=== PATIENT | male | born 2000 | race Caucasian/White ===

== ENCOUNTER 2019-03-18 12:42 | Observation (INO) | payer OTHER ==
[2019-03-18] MEDS ORDERED: fentaNYL (PF) 50 MCG/ML 2 ML AMP IVP STA (12:44)
--- NOTE | 2019-03-18 12:56 | ED ---
General Adult HPI - General Stated complaint: Trauma Time Seen by Provider: 03/18/19 12:43 Source: patient, EMS, RN notes reviewed, old records reviewed Mode of arrival: EMS Limitations: no limitations - History of Present Illness Initial comments: 18 -year-old male presenting status post fall. Patient is supposed member in the [employer], he fell into the storage compartment of a [employer] ship. Fall was approximately 10 feet. Patient complains of left shoulder pain, left thigh pain. He was cleared by EMS on backboard, c-collar in place, cervical precautions. He has no head or neck pain. No loss consciousness. Denies abdominal pain. He does have some chest pain with deep inspiration. He has no chronic medical conditions. No medications. - Related Data Home Medications Medication Instructions Recorded Confirmed No Known Home Medications 03/18/19 03/18/19 Allergies Allergy/AdvReac Type Severity Reaction Status Date / Time No Known Allergies Allergy Verified 03/18/19 14:01 Review of Systems ROS Statement: Those systems with pertinent positive or pertinent negative responses have been documented in the HPI. ROS Other: All systems not noted in ROS Statement are negative. Past Medical History Past Medical History: No Reported History History of Any Multi-Drug Resistant Organisms: None Reported Past Surgical History: No Surgical Hx Reported Smoking Status: Never smoker Past Alcohol Use History: None Reported Past Drug Use History: None Reported General Exam Limitations: no limitations General appearance: alert, in no apparent distress Head exam: Present: atraumatic, normocephalic Eye exam: Present: normal appearance, PERRL ENT exam: Present: normal exam Neck exam: Present: normal inspection, other (Cervical collar in place). Absent: tenderness Respiratory exam: Present: normal lung sounds bilaterally, chest wall tenderness (Left-sided chest wall tenderness). Absent: respiratory distress, wheezes Cardiovascular Exam: Present: regular rate, normal rhythm GI/Abdominal exam: Present: soft. Absent: distended, tenderness, guarding, rebound Extremities exam: Present: other (Left distal femur tenderness palpation, swelling, no shortening of the left lower extremity, distal pulses are intact. Pelvis is stable.) Back exam: Present: normal inspection. Absent: tenderness, paraspinal tenderness, vertebral tenderness Neurological exam: Present: alert, oriented X3 Psychiatric exam: Present: normal affect, normal mood Skin exam: Present: warm, dry, intact. Absent: cyanosis, diaphoretic Course Vital Signs 03/18/19 03/18/19 12:43 13:18 Temperature 97.0 F L Pulse Rate 89 76 Respiratory 20 20 Rate Blood Pressure 142/82 141/76 O2 Sat by Pulse 98 98 Oximetry Medical Decision Making - Medical Decision Making 18-year-old male, otherwise healthy presenting status post fall with chief complaint left shoulder pain, left thigh pain. Patient fell approximately 10 feet. He required EMS extrication. No head or neck trauma reported. He was transported with spinal precautions, cervical collar in place. He was evaluated immediately upon arrival. He had stable vital signs, his abdomen was soft nontender. Complains predominately of left shoulder pain, posterior rib pain and left thigh pain. He receives CT of the head and cervical spine without contrast, and CT with contrast of chest abdomen pelvis as well as plain films of the chest, pelvis, left knee, and left femur. Injuries include left posterior nondisplaced rib fractures 7 through 10 with adjacent pulmonary contusion. He has transverse process fracture 8-10. No other traumatic injuries noted on imaging. Case is discussed with Dr. Ramirez, will admit with orthopedics on c onsult. Case is discussed with More hood for Dr. Cole, will evaluate this patient in consultation regarding transverse process fracture. Patient kept on supplemental oxygen and given incentive spirometry. Admitted for pain control and further evaluation treatment. - Lab Data Result diagrams: 03/18/19 12:21 03/18/19 12:21 Lab Results 03/18/19 03/18/19 03/18/19 Range/Units 12:21 12:21 12:21 WBC 7.8 (4.0-11.0) k/uL RBC 5.26 (4.30-5.90) m/uL Hgb 14.5 (13.0-17.5) gm/dL Hct 43.6 (39.0-53.0) % MCV 82.9 (80.0-100.0) fL MCH 27.7 (25.0-35.0) pg MCHC 33.4 (31.0-37.0) g/dL RDW 14.1 (11.5-15.5) % Plt Count 240 (150-450) k/uL Neutrophils % 71 % Lymphocytes % 22 % Monocytes % 4 % Eosinophils % 2 % Basophils % 0 % Neutrophils # 5.5 (1.3-7.7) k/uL Lymphocytes # 1.7 (1.0-4.8) k/uL Monocytes # 0.3 (0-1.0) k/uL Eosinophils # 0.1 (0-0.7) k/uL Basophils # 0.0 (0-0.2) k/uL PT 10.2 (9.0-12.0) sec INR 0.9 (<1.2) APTT 22.1 (22.0-30.0) sec Sodium 140 (137-145) mmol/L Potassium 4.4 (3.5-5.1) mmol/L Chloride 103 (98-107) mmol/L Carbon Dioxide 26 (22-30) mmol/L Anion Gap 11 mmol/L BUN 24 H (9-20) mg/dL Creatinine 1.06 (0.66-1.25) mg/dL Est GFR (CKD-EPI)AfAm >90 (>60 ml/min/1.73 sqM) Est GFR (CKD-EPI)NonAf >90 (>60 ml/min/1.73 sqM) Glucose 113 H (74-99) mg/dL Calcium 9.7 (8.4-10.2) mg/dL Total Bilirubin 0.6 (0.2-1.3) mg/dL AST 49 (17-59) U/L ALT 37 (21-72) U/L Alkaline Phosphatase 79 (38-126) U/L Troponin I (0.000-0.034) ng/mL Total Protein 7.4 (6.3-8.2) g/dL Albumin 4.6 (3.5-5.0) g/dL Blood Type Blood Type Recheck Antibody Screen Spec Expiration Date 03/18/19 03/18/19 Range/Units 12:21 12:21 WBC (4.0-11.0) k/uL RBC (4.30-5.90) m/uL Hgb (13.0-17.5) gm/dL Hct (39.0-53.0) % MCV (80.0-100.0) fL MCH (25.0-35.0) pg MCHC (31.0-37.0) g/dL RDW (11.5-15.5) % Plt Count (150-450) k/uL Neutrophils % % Lymphocytes % % Monocytes % % Eosinophils % % Basophils % % Neutrophils # (1.3-7.7) k/uL Lymphocytes # (1.0-4.8) k/uL Monocytes # (0-1.0) k/uL Eosinophils # (0-0.7) k/uL Basophils # (0-0.2) k/uL PT (9.0-12.0) sec INR (<1.2) APTT (22.0-30.0) sec Sodium (137-145) mmol/L Potassium (3.5-5.1) mmol/L Chloride (98-107) mmol/L Carbon Dioxide (22-30) mmol/L Anion Gap mmol/L BUN (9-20) mg/dL Creatinine (0.66-1.25) mg/dL Est GFR (CKD-EPI)AfAm (>60 ml/min/1.73 sqM) Est GFR (CKD-EPI)NonAf (>60 ml/min/1.73 sqM) Glucose (74-99) mg/dL Calcium (8.4-10.2) mg/dL Total Bilirubin (0.2-1.3) mg/dL AST (17-59) U/L ALT (21-72) U/L Alkaline Phosphatase (38-126) U/L Troponin I <0.012 (0.000-0.034) ng/mL Total Protein (6.3-8.2) g/dL Albumin (3.5-5.0) g/dL Blood Type O Positive Blood Type Recheck CABO Indicated Antibody Screen NEGATIVE Spec Expiration Date 03/21/2019 - 2320 Disposition Clinical Impression: Fall, Ribs, multiple fractures, Multiple transverse process fractures Disposition: ADMITTED IP TO THIS [facility] Condition: Stable Is patient prescribed a controlled substance at d/c from ED?: No Referrals: None,Stated [Primary Care Provider] - 1-2 days Decision to Admit Reason: Admit from EC Decision Date: 03/18/19 Decision Time: 15:24
[2019-03-18 13:06] LABS: Basophils % (A) 0 %; Eosinophils # (A) 0.1 k/uL (0-0.7); Eosinophils % (A) 2 %; HCT 43.6 % (39.0-53.0); HGB 14.5 gm/dL (13.0-17.5); Lymphocytes # (A) 1.7 k/uL (1.0-4.8); Lymphocytes % (A) 22 %; MCH 27.7 pg (25.0-35.0); MCHC 33.4 g/dL (31.0-37.0); MCV 82.9 fL (80.0-100.0); Mean Platelet Volume 7.7; Monocytes # (A) 0.3 k/uL (0-1.0); Monocytes % (A) 4 %; Neutrophils # (A) 5.5 k/uL (1.3-7.7); Neutrophils % (A) 71 %; Platelet Count 240 k/uL (150-450); RBC 5.26 m/uL (4.30-5.90); RDW 14.1 % (11.5-15.5); WBC 7.8 k/uL (4.0-11.0)
[2019-03-18 13:11] LABS: ALT 37 U/L (21-72); AST 49 U/L (17-59); African American GFR (CKD) >90 (>60 ml/min/1.73 sqM); Albumin 4.6 g/dL (3.5-5.0); Alkaline Phosphatase 79 U/L (38-126); Anion Gap 11 mmol/L; Blood Urea Nitrogen 24 mg/dL (9-20); Calcium 9.7 mg/dL (8.4-10.2); Carbon Dioxide 26 mmol/L (22-30); Chloride 103 mmol/L (98-107); Glucose 113 mg/dL (74-99); Potassium 4.4 mmol/L (3.5-5.1); Sodium 140 mmol/L (137-145); Total Bilirubin 0.6 mg/dL (0.2-1.3); Total Protein 7.4 g/dL (6.3-8.2)
--- NOTE | 2019-03-18 13:11 | XR ---
AP pelvis HISTORY: Trauma and pain Single frontal view of the pelvis Patient is rotated. There are overlying artifacts. Bone mineralization, joint spaces and alignment ar e maintained IMPRESSION: No fracture or dislocation.
--- NOTE | 2019-03-18 13:13 | XR ---
EXAMINATION TYPE: XR chest 1V portable DATE OF EXAM: 03/18/2019 COMPARISON: NONE HISTORY: Fall with subsequent chest pain TECHNIQUE: Single frontal view of the chest is obtained. FINDINGS: There is no focal air space opacity, pleural effusion, or pneumothorax seen. The cardiac silhouette size is mildly enlarged. The osseous structures are intact. IMPRESSION: No acute process.
[2019-03-18 13:15] LABS: INR 0.9 (<1.2); Partial Thromboplastin Time 22.1 sec (22.0-30.0); Prothrombin Time 10.2 sec (9.0-12.0)
--- NOTE | 2019-03-18 13:48 | CT ---
EXAMINATION TYPE: CT brain alex wo con DATE OF EXAM: 03/18/2019 COMPARISON: None HISTORY: 18-year-old male with pain after Trauma. 8-[address] DLP: 1283.80 mGycm Automated exposure control for dose reduction was used. Technique: Examination of the head was done in axial plane without intravenous contrast. Coronal and sagittal reconstructions performed. CT of the cervical spine was obtained in axial plane without intravenous injection of contrast mater ial. Coronal and sagittal reformatted images were obtained from the axial views for evaluation of f ractures, spinal alignment and canal. FINDINGS: Head: There is no evidence of acute intracranial hemorrhage, acute ischemic changes, mass, mass-effect, or extra-axial fluid collection. There is no effacement of cerebral sulci or basal subarachnoid cister ns. There is no hydrocephalus. There is no midline shift. Winston-white matter distinction is preserv ed. Paranasal sinuses and mastoid air cells well pneumatized. Orbits and globes are intact. No calvarial fracture. Cervical spine: The alignment of the cervical spine is normal on coronal and reformatted images. There is no cranial vertebral abnormality. Fracture of the cervical spine is not seen. There is no central spinal canal s tenosis. Sagittal and coronal reformatted images confirm above findings. COMBINED IMPRESSION: 1. No acute intracranial abnormality seen. 2. No acute fracture or malalignment of cervical spine.
--- NOTE | 2019-03-18 14:00 | CT ---
EXAMINATION TYPE: CT ChestAbdPelvis w con DATE OF EXAM: 03/18/2019 COMPARISON: None HISTORY: 18-year-old male with pain after Trauma-8 to 10 foot Fall TECHNIQUE: Contiguous axial scanning of the test, abdomen, and pelvis performed with IV Contrast, pat ient injected with 100 ml mL of Isovue 300. Delayed images through the kidneys were obtained. Coronal /sagittal reconstructions performed. CT DLP: 1194.70 mGycm Automated exposure control for dose reduction was used. FINDINGS: Chest: Heart normal size without pericardial effusion. Mild residual thymic tissue is present in the anterio r mediastinum. Aorta normal caliber with conventional or 2 subtle branching anatomy. No evidence for aortic dissecti on. No thoracic lymphadenopathy. Mild bilateral gynecomastia. Scattered mild subpleural pulmonary groundglass is present in the left lung without pleural effusion. There is trace punctate foci of pleural air adjacent to the left posterior eighth rib. ABDOMEN: No focal liver lesion or biliary ductal dilatation. Portal venous system is patent. Prominent ingeste d debris within the stomach. Gallbladder, adrenal glands, kidneys, spleen, and pancreas appear within normal limits. No dilated small bowel, free fluid, or free air. No mesenteric or retroperitoneal lymphadenopathy seen. Mild to moderate stool burden. No pericolonic inflammatory change. Pelvis: Bladder is urine distended. No abnormal fluid collection in the pelvis or pelvic lymphadenopathy. Bones: No hip, pelvic, or sacral fracture is identified. Vertebral body heights are maintained. However, there are fractures of the left lateral seventh and left posterior eighth, ninth, and 10th r ibs without any displacement. Accompanying fractures involving the left T8, T9, and T10 transverse pr ocesses. IMPRESSION: 1. NONDISPLACED FRACTURES OF THE LEFT SEVENTH, EIGHTH, NINTH, AND 10TH RIBS WITH ASSOCIATED MILD PULM ONARY CONTUSIONS ON THE LEFT. 2. A COUPLE PUNCTATE FOCI OF PLEURAL AIR ADJACENT TO THE LEFT POSTERIOR EIGHTH RIB FRACTURE. NO SIZAB LE PNEUMOTHORAX AT THIS TIME. THE PATIENT CAN BE MONITORED. 3. THERE ARE ACCOMPANYING FRACTURES OF THE LEFT T8, T9, AND T10 TRANSVERSE PROCESSES.
[2019-03-18] MEDS ORDERED: KETOROLAC 30 MG/ML 1 ML VIAL IVP STA (14:35)
--- NOTE | 2019-03-18 14:42 | XR ---
EXAMINATION TYPE: XR shoulder complete LT DATE OF EXAM: 03/18/2019 COMPARISON: NONE HISTORY: 18-year-old male with pain after fall TECHNIQUE: 3 views FINDINGS: AC joint appears congruent and intact. No acute fracture, subluxation, or dislocation. IMPRESSION: No acute osseous abnormality seen.
--- NOTE | 2019-03-18 14:45 | XR ---
EXAMINATION TYPE: XR femur LT 2 views, XR knee complete LT 3 views DATE OF EXAM: 03/18/2019 COMPARISON: NONE HISTORY: 18-year-old male with pain after fall FINDINGS: Left femur: Stable bone island intertrochanteric region of the proximal left femur. IV contrast collecting within the bladder. No acute fracture is identified. Left knee: Anterior soft tissue swelling with underlying small knee joint effusion and some reticulations in the infrapatellar fat pad. No acute fracture, subluxation, or dislocation seen. IMPRESSION: 1. Left femur: No acute osseous abnormality seen. 2. Left knee: Anterior soft tissue swelling with underlying small joint effusion and some swelling in the infrapatellar fat pad. No acute osseous abnormality seen. MRI can assess for internal derangemen t if indicated.
[2019-03-18] MEDS ORDERED: ACETAMINOPHEN TAB 325 MG TAB PO PRN (15:19)
[2019-03-18] MEDS ORDERED: KETOROLAC 30 MG/ML 1 ML VIAL IVP PRN (15:19)
[2019-03-18] MEDS ORDERED: NALOXONE 0.4 MG/ML 1 ML VIAL IV PRN (15:19)
[2019-03-18] MEDS ORDERED: HYDROmorphone 0.5 MG/0.5 ML SYRINGE IVP PRN (15:19)
--- NOTE | 2019-03-18 20:28 | P.GSHP ---
History of Present Illness H&P Date: 03/18/19 Patient presents status post fall over 8-10 feet off the ship. He complains primarily of left back pain including rib pain. He has multiple rib fractures on the left side. Ironically, pain is well-controlled. Recommend orthopedic spine consultation for fracture transverse process. Continue with close observation. Anticipated discharge pending orthopedic assessment. Past Medical History Past Medical History: No Reported History History of Any Multi-Drug Resistant Organisms: None Reported Past Surgical History: No Surgical Hx Reported Past Anesthesia/Blood Transfusion Reactions: No Reported Reaction Past Psychological History: No Psychological Hx Reported Smoking Status: Never smoker Past Alcohol Use History: None Reported Past Drug Use History: None Reported Medications and Allergies Home Medications Medication Instructions Recorded Confirmed Type No Known Home Medications 03/18/19 03/18/19 History Allergies Allergy/AdvReac Type Severity Reaction Status Date / Time No Known Allergies Allergy Verified 03/18/19 14:01 Surgical - Exam Vital Signs Temp Pulse Resp BP Pulse Ox 97.0 F L 89 20 142/82 98 03/18/19 12:43 03/18/19 12:43 03/18/19 12:43 03/18/19 12:43 03/18/19 12:43 Results - Labs 03/18/19 12:21 03/18/19 12:21 Abnormal Lab Results - Last 24 Hours (Table) 03/18/19 Range/Units 12:21 BUN 24 H (9-20) mg/dL Glucose 113 H (74-99) mg/dL Diabetes panel 03/18/19 Range/Units 12:21 Sodium 140 (137-145) mmol/L Potassium 4.4 (3.5-5.1) mmol/L Chloride 103 (98-107) mmol/L Carbon Dioxide 26 (22-30) mmol/L BUN 24 H (9-20) mg/dL Creatinine 1.06 (0.66-1.25) mg/dL Glucose 113 H (74-99) mg/dL Calcium 9.7 (8.4-10.2) mg/dL AST 49 (17-59) U/L ALT 37 (21-72) U/L Alkaline Phosphatase 79 (38-126) U/L Total Protein 7.4 (6.3-8.2) g/dL Albumin 4.6 (3.5-5.0) g/dL Calcium panel 03/18/19 Range/Units 12:21 Calcium 9.7 (8.4-10.2) mg/dL Albumin 4.6 (3.5-5.0) g/dL Pituitary panel 03/18/19 Range/Units 12:21 Sodium 140 (137-145) mmol/L Potassium 4.4 (3.5-5.1) mmol/L Chloride 103 (98-107) mmol/L Carbon Dioxide 26 (22-30) mmol/L BUN 24 H (9-20) mg/dL Creatinine 1.06 (0.66-1.25) mg/dL Glucose 113 H (74-99) mg/dL Calcium 9.7 (8.4-10.2) mg/dL Adrenal panel 03/18/19 Range/Units 12:21 Sodium 140 (137-145) mmol/L Potassium 4.4 (3.5-5.1) mmol/L Chloride 103 (98-107) mmol/L Carbon Dioxide 26 (22-30) mmol/L BUN 24 H (9-20) mg/dL Creatinine 1.06 (0.66-1.25) mg/dL Glucose 113 H (74-99) mg/dL Calcium 9.7 (8.4-10.2) mg/dL Total Bilirubin 0.6 (0.2-1.3) mg/dL AST 49 (17-59) U/L ALT 37 (21-72) U/L Alkaline Phosphatase 79 (38-126) U/L Total Protein 7.4 (6.3-8.2) g/dL Albumin 4.6 (3.5-5.0) g/dL
[2019-03-18 20:44] LABS: Appearance,Urine Clear (Clear); Bilirubin,Urine Negative (Negative); Blood,Urine Negative (Negative); Color,Urine Yellow; Glucose,Urine (UA) Negative (Negative); Ketones,Urine Negative (Negative); Leukocyte Esterase,Urine Negative (Negative); Nitrite,Urine Negative (Negative); Protein,Urine Trace (Negative); Urobilinogen,Urine <2.0 mg/dL (<2.0)
[2019-03-18] MEDS: IBUPROFEN 400 MG TAB PO PRN (21:09)
[2019-03-18 21:23] LABS: Specific Gravity,Urine >1.050 (1.001-1.035)
[2019-03-19] MEDS: IBUPROFEN 400 MG TAB PO PRN ×2 (05:54→11:27)
[2019-03-19] MEDS ORDERED: HYDROcodone/APAP 5-325MG 1 EACH TAB PO PRN (11:49)
--- NOTE | 2019-03-19 11:55 | P.PN ---
<Lynsey Joyce A - Last Filed: 03/19/19 11:48> Subjective Progress Note Date: 03/19/19 CHIEF COMPLAINT: Status post fall HISTORY OF PRESENT ILLNESS: Patient seen and examined this morning at the bedside. Patient currently rates his pain 5 out of 10 and states it is mostly in his chest and left leg. Denies nausea or vomiting. Tolerating regular diet. Vital signs stable. PHYSICAL EXAM: VITAL SIGNS: Currently stable. GENERAL: Well-developed in no acute distress. HEENT: No sclera icterus. Extraocular movements grossly intact. Moist buccal mucosa. Head is atraumatic, normocephalic. Hears conversational speech. No nasal drainage. NECK: Supple without lymphadenopathy. CHEST: Non-labored respirations and equal bilateral excursions. Left chest wall tenderness. CARDIOVASCULAR: Regular rate with regular rhythm. Palpable 2+ radial pulses. ABDOMEN: Soft. Nondistended. Nontender. MUSCULOSKELETAL: No clubbing, cyanosis or edema. NEUROLOGIC: No focal or lateralizing signs. Cranial nerves II through XII grossly intact. PSYCH: Appropriate affect. Alert and oriented to person, place and time. SKIN: Well perfused. Good skin turgor. ASSESSMENT: 1. Trauma, s/p fall from 8 feet 2. Nondisplaced left rib fractures, 7-10 3. Pulmonary contusion 4. T8, T9, T10 transverse process fracture PLAN: 1. Continue regular diet as tolerated 2. Pain control 3. Incentive spirometry 4. Patient evaluated by orthopedics this morning. No surgical intervention recommended. Patient to follow up outpatient in 2 weeks. 5. Patient worked with PT this morning and after ambulating in the hallways he feels he is not ready for discharge home today. Anticipate discharge home tomorrow Nurse practitioner note has been reviewed by physician. Signing provider agrees with the documented findings, assessment, and plan of care. Objective - Vital Signs Vital signs: Vital Signs Temp 97.7 F 03/19/19 07:00 Pulse 69 03/19/19 07:00 Resp 17 03/19/19 07:16 BP 120/68 03/19/19 07:00 Pulse Ox 97 03/19/19 07:00 Intake & Output 03/18/19 03/19/19 03/19/19 18:59 06:59 18:59 Intake Total 250 236 Output Total 950 Balance -700 236 Weight 90.718 kg Intake: Oral 250 236 Output: Urine 950 Other: Voiding Method Urinal # Voids 1 1 - Labs CBC & Chem 7: 03/18/19 12:21 03/18/19 12:21 Labs: Abnormal Lab Results - Last 24 Hours (Table) 03/18/19 03/18/19 Range/Units 12:21 20:30 BUN 24 H (9-20) mg/dL Glucose 113 H (74-99) mg/dL Ur Specific [place] >1.050 H (1.001-1.035) Urine Protein Trace H (Negative) Assessment and Plan (1) Pulmonary contusion Current Visit: Yes Status: Acute Code(s): S27.329A - CONTUSION OF LUNG, UNSPECIFIED, INITIAL ENCOUNTER SNOMED Code(s): 129196875 (2) Fall Current Visit: Yes Status: Acute Code(s): W19.XXXA - UNSPECIFIED FALL, INITIAL ENCOUNTER SNOMED Code(s): 5686771 (3) Multiple transverse process fractures Current Visit: Yes Status: Acute Code(s): EQR8039 - SNOMED Code(s): 53507960 (4) Ribs, multiple fractures Current Visit: Yes Status: Acute Code(s): S22.49XA - MULTIPLE FRACTURES OF RIBS, UNSP SIDE, INIT FOR CLOS FX SNOMED Code(s): 7123866 <Evie Ramirez N - Last Filed: 03/19/19 16:53> Subjective Patient seen and evaluated. Pain has improved. He has difficulty with ambulation with physical therapy. Continue hospitalization for generalized debility status post fall from over 8 feet. Objective - Vital Signs Vital signs: Vital Signs Temp 98.2 F 03/19/19 15:00 Pulse 75 03/19/19 15:00 Resp 16 03/19/19 15:00 BP 123/74 03/19/19 15:00 Pulse Ox 98 03/19/19 15:00 Intake & Output 03/18/19 03/19/19 03/19/19 18:59 06:59 18:59 Intake Total 250 810 Output Total 950 Balance -700 810 Weight 90.718 kg Intake: Oral 250 810 Output: Urine 950 Other: Voiding Method Urinal # Voids 1 1 - Labs CBC & Chem 7: 03/18/19 12:21 03/18/19 12:21 Labs: Abnormal Lab Results - Last 24 Hours (Table) 03/18/19 Range/Units 20:30 Ur Specific [place] >1.050 H (1.001-1.035) Urine Protein Trace H (Negative)
--- NOTE | 2019-03-19 12:33 | P.CNOR ---
History of Present Illness - HPI Consult reason: fracture (Left transverse process fractures at T8, T9, and T10), other History of present illness: Patient is a pleasant 18-year-old male who is examined at bedside for further evaluation for known thoracic transverse process fractures status post fall. Patient is a member of the [employer] and fell into a storage container while o n the [employer] ship. He fell approximately 10 feet. He states he fell on his left side with most of his weight landing on his left thigh. Since that time he has been experiencing left thigh pain and significant mid to lower thoracic back pain most significant on the left. He presented to the emergency department for further evaluation. He was in admitted to trauma surgery. He denies any lower extremity radiculopathy or specific weakness bilaterally. He feels he has some difficulty with lifting his left lower extremity due to thigh pain. He is remain lying in bed since his admission. His thoracic back pain is exacerbated with movements of his spine. He denies loss of consciousness. He was found to have left-sided rib fractures as well. He is admitted to trauma surgery and is being treated for a pulmonary contusion. Past Medical History Past Medical History: No Reported History History of Any Multi-Drug Resistant Organisms: None Reported Past Surgical History: No Surgical Hx Reported Past Anesthesia/Blood Transfusion Reactions: No Reported Reaction Past Psychological History: No Psychological Hx Reported Smoking Status: Never smoker Past Alcohol Use History: None Reported Past Drug Use History: None Reported Medications and Allergies Home Medications Medication Instructions Recorded Confirmed Type No Known Home Medications 03/18/19 03/18/19 History Allergies Allergy/AdvReac Type Severity Reaction Status Date / Time No Known Allergies Allergy Verified 03/18/19 14:01 Physical Examination Physical exam: Patient is awake, alert, and oriented 3 Vital signs stable Good chest excursion with deep inspiration and expiration Examination of thoracic and lumbar spine reveals skin is intact with no issac sions, lacerations, or bruises; no erythema, purulence or signs of infection Pain with palpation along the mid and lower thoracic spine to the left over the paraspinals Dorsiflexion, plantarflexion, and extensor hallucis longus positive sustained bilaterally Lower extremity strength 5/5 bilaterally except for some difficulty with performing hip flexion on the left due to pain Mild pain with palpation over the left anterior thigh No evidence of erythema, bruising, laceration, or obvious signs of infection over the anterior left thigh Patellar reflex 2+ bilaterally No lower extremity hyperreflexia bilaterally Straight leg test negative bilateral lower extremities No signs or symptoms of DVT; no calf pain No pain with internal and external rotation of the hips bilaterally Neurovascularly intact Results Pertinent studies: CT of the chest, abdomen, and pelvis taken on 03/18/2019 reviewed for orthopedic purposes: Evidence of left lateral seventh rib fracture, posterior rib fractures at rib 8, 9, and 10 on the left without displacement; T8, T9, and T10 left transverse process fractures; no evidence of hip, pelvic, or sacral fractures identified; no evidence of vertebral body compression fracture X-rays of the left femur taken on 03/18/2019: No evidence of acute osseous abnormality seen - Labs Labs: Abnormal Lab Results - Last 24 Hours (Table) 03/18/19 03/18/19 Range/Units 12:21 20:30 BUN 24 H (9-20) mg/dL Glucose 113 H (74-99) mg/dL Ur Specific [place] >1.050 H (1.001-1.035) Urine Protein Trace H (Negative) H & H 03/18/19 Range/Units 12:21 Hgb 14.5 (13.0-17.5) gm/dL Hct 43.6 (39.0-53.0) % Coagulation 03/18/19 Range/Units 12:21 INR 0.9 (<1.2) Result Diagrams: 03/18/19 12:21 03/18/19 12:21 Assessment and Plan Assessment: Assessment: Left-sided transverse process fractures at T8, T9, and T10 Nondisplaced left-sided rib fractures at T7, T8, T9, T10 Status post fall Pulmonary contusion (1) Fall Current Visit: Yes Status: Acute Code(s): W19.XXXA - UNSPECIFIED FALL, INITIAL ENCOUNTER SNOMED Code(s): 9756961 (2) Multiple transverse process fractures Current Visit: Yes Status: Acute Code(s): VZH8260 - SNOMED Code(s): 45338378 (3) Pulmonary contusion Current Visit: Yes Status: Acute Code(s): S27.329A - CONTUSION OF LUNG, UNSPECIFIED, INITIAL ENCOUNTER SNOMED Code(s): 936341460 (4) Ribs, multiple fractures Current Visit: Yes Status: Acute Code(s): S22.49XA - MULTIPLE FRACTURES OF RIBS, UNSP SIDE, INIT FOR CLOS FX SNOMED Code(s): 3123580 Plan: Plan: 1. Patient has been discussed in detail with Dr. Chip Cole. After physical examination of the patient, reviewing of imaging, and further discussion with the patient, we are currently planning to continue conservative treatment at this time. Patient does not require bracing for his left thoracic transverse process fractures and nondisplaced left-sided rib fractures. We discussed he may participate in light activities to tolerance. He should avoid excessive bending, twisting, lifting; no lifting greater than 10 pounds. He is neurologically intact bilateral lower extremities. He does have some increased thigh pain following his fall. X-rays do not show evidence of femur fracture. He does not have any significant bruising or erythema or the left thigh. He may weight-bear as tolerated on left lower extremity. We discussed he'll be cleared for discharge from an orthopedic spine standpoint. Patient may follow-up in the outpatient setting in approximately 1-2 weeks for further evaluation. If his symptoms are not improving at that time, we will again discuss the possibility of obtaining a brace. 2. Patient will continue be seen in exam by trauma surgery; if patient is able to improve, the plan for discharge tomorrow Time with Patient: Greater than 30 (Including obtaining history, physical examination, reviewing of imaging, and dictation.)
[2019-03-19] MEDS: KETOROLAC 30 MG/ML 1 ML VIAL IVP SCH ×2 (17:12→23:26)
[2019-03-20] MEDS: KETOROLAC 30 MG/ML 1 ML VIAL IVP SCH ×2 (05:31→11:55)
[2019-03-20 08:47] VITALS: BP 120/61; PULSE 65; RESP 15; TEMP 97.7
--- NOTE | 2019-03-20 10:18 | P.PN ---
Subjective Progress Note Date: 03/20/19 CHIEF COMPLAINT: Status post fall over 8 feet HISTORY OF PRESENT ILLNESS: The patient is a 18-year-old male status post fall from ship. He had physical therapy, occupational therapy, evaluation by orthopedics. Pain has improved compared to yesterday. He has multiple left- sided rib fractures including transverse process fracture for which orthopedic surgery had seen. He feels better today. He is ambulating more. "My shoulders now hurt." He is concerned that he has no one at home to watch him. Rehab was offered and declined by him. Currently pending PT/OT final recommendations including ortho as patient had debility preventing discharge yesterday. Limitations and restrictions pending from Ortho including PT/OT. ROS: No reports of nausea and vomiting. No bowel movements. No fevers or chills. No new chest pain. No productive sputum PHYSICAL EXAM: VITAL SIGNS: Reviewed CONSTITUTIONAL: Well developed and in no acute distress. EYES: Conjuctivae without sclera icterus. Extraocular movements grossly intact. HEAD, EARS, NOSE, THROAT: Moist buccal mucosa. Head is atraumatic, no rmocephalic. Hears conversational speech. No nasal drainage. NECK: Supple. No thyroidomegaly. RESPIRATORY: Non-labored respirations and equal bilateral excursions. CARDIOVASCULAR: Palpable 2+ radial pulses. Regular rate. Regular rhythm. ABDOMEN: Soft, nontender, nondistended. MUSCULOSKELETAL: No gross deformity of the lower extremities noted. No clubbing. No cyanosis. SKIN: Good skin turgor. Well perfused. NEUROLOGIC: Cranial nerves I through XII grossly intact. No focal or lateralizing signs. PSYCH: Appropriate affect. Alert and oriented to person, place and time. ASSESSMENT: 1. Status post fall over 8 feet 2. Multiple rib fractures, left side 3. Transverse process fracture PLAN: 1. Per ortho: Patient should avoid excessive bending, twisting, and lifting; no lifting greater than 10 pounds. Patient may ambulate to tolerance 2. Final recommendations obtained per PT OT where patient was cleared for discharge Objective - Vital Signs Vital signs: Vital Signs Temp 97.7 F 03/20/19 07:00 Pulse 65 03/20/19 07:00 Resp 15 03/20/19 07:00 BP 120/61 03/20/19 07:00 Pulse Ox 98 03/20/19 07:00 Intake & Output 03/19/19 03/20/19 03/20/19 18:59 06:59 18:59 Intake Total 1282 Balance 1282 Intake: Oral 1282 Other: Voiding Method Urinal Urinal # Voids 1 3 # Bowel Movements 1 - Labs CBC & Chem 7: 03/18/19 12:21 03/18/19 12:21 Assessment and Plan (1) Fall Current Visit: Yes Status: Acute Code(s): W19.XXXA - UNSPECIFIED FALL, INITIAL ENCOUNTER SNOMED Code(s): 4138184 (2) Multiple transverse process fractures Current Visit: Yes Status: Acute Code(s): ABC5196 - SNOMED Code(s): 61218539 (3) Ribs, multiple fractures Current Visit: Yes Status: Acute Code(s): S22.49XA - MULTIPLE FRACTURES OF RIBS, UNSP SIDE, INIT FOR CLOS FX SNOMED Code(s): 4136248
--- NOTE | 2019-03-20 10:26 | P.DS ---
Providers Date of admission: 03/18/19 15:19 Expected date of discharge: 03/20/19 Attending physician: Evie Ramirez Consults: 03/18/19 15:20 Consult Physician Routine Consulting Provider: Melissa Cole Consult Reason/Comments: Fall, transverse process fracture Do you want consulting provider notified?: Already Contacted Primary care physician: Stated None - Discharge Diagnosis(es) (1) Fall Current Visit: Yes Status: Acute (2) Multiple transverse process fractures Current Visit: Yes Status: Acute (3) Ribs, multiple fractures Current Visit: Yes Status: Acute Hospital Course: CHIEF COMPLAINT: Status post fall over 8 feet HISTORY OF PRESENT ILLNESS: The patient is a 18-year-old male status post fall from ship. He presented with multiple rib fractures involving the left side including transverse process fractures. No neurological deficits noted. Secondary to the severity of the pain he was admitted. He had physical therapy, occupational therapy, evaluation by orthopedics. Pain has improved compared to yesterday. He has multiple left-sided rib fractures including transverse process fracture for which orthopedic surgery had seen. He feels better today. He is ambulating more. "My shoulders now hurt." He is concerned that he has no one at home to watch him. Rehab was offered and declined by him. Currently pending PT/OT final recommendations including ortho as patient had debility preventing discharge yesterday. Limitations and restrictions pending from Ortho including PT/OT. ROS: No reports of nausea and vomiting. No bowel movements. No fevers or chills. No new chest pain. No productive sputum PHYSICAL EXAM: VITAL SIGNS: Reviewed CONSTITUTIONAL: Well developed and in no acute distress. EYES: Conjuctivae without sclera icterus. Extraocular movements grossly intact. HEAD, EARS, NOSE, THROAT: Moist buccal mucosa. Head is atraumatic, normocephalic. Hears conversational speech. No nasal drainage. NECK: Supple. No thyroidomegaly. RESPIRATORY: Non-labored respirations and equal bilateral excursions. CARDIOVASCULAR: Palpable 2+ radial pulses. Regular rate. Regular rhythm. ABDOMEN: Soft, nontender, nondistended. MUSCULOSKELETAL: No gross deformity of the lower extremities noted. No clubbing. No cyanosis. SKIN: Good skin turgor. Well perfused. NEUROLOGIC: Cranial nerves I through XII grossly intact. No focal or lateralizing signs. PSYCH: Appropriate affect. Alert and oriented to person, place and time. Per ortho: 1. Patient should avoid excessive bending, twisting, and lifting; no lifting greater than 10 pounds 2. Patient may ambulate to tolerance Patient seen by PT/OT with recommendations reviewed. Patient able to transfer and independent. May be discharge with Ibuprofen including Flexeril with restrictions as stated above. Pertinent Studies: CT of the abdomen and pelvis chest demonstrating multiple left-sided rib fractures including transverse process fractures. No solid organ injury. CT head negative for acute bleed or injury. Multiple extremity films demonstrating no acute fractures Patient Condition at Discharge: Stable Plan - Discharge Summary Discharge Rx Participant: No New Discharge Prescriptions: New Ibuprofen [Motrin] 600 mg PO Q8HR PRN #30 tab PRN Reason: Pain Cyclobenzaprine [Flexeril] 10 mg PO TID #30 tab Discharge Medication List Cyclobenzaprine [Flexeril] 10 mg PO TID #30 tab 03/20/19 [Rx] Ibuprofen [Motrin] 600 mg PO Q8HR PRN #30 tab 03/20/19 [Rx] Follow up Appointment(s)/Referral(s): Otoniel Horn PAC [PHYSICIAN [employer]] - 04/06/19 4:00 pm (Patient may follow-up with Otoniel Horn PA-C or Dr. Chip Cole at [facility] in 1-2 weeks following discharge. ) Evie Ramirez MD [STAFF PHYSICIAN] - As Needed None,Stated [Primary Care Provider] - 1-2 days Patient Instructions/Handouts: Rib Fracture (DC) Activity/Diet/Wound Care/Special Instructions: Per ortho: 1. Patient should avoid excessive bending, twisting, and lifting; no lifting greater than 10 pounds 2. Patient may ambulate to tolerance Discharge Disposition: HOME SELF-CARE
== END 2019-03-20 13:10 | disposition home or self-care (01) ==
LOC: EC 12:42 → 4SSUR 15:19
PROVIDERS: ADMIT Surgery Plastic and Reconstructive Surgery; ATTEND Surgery Plastic and Reconstructive Surgery
DX: S22.069A Unspecified fracture of T7-T8 vertebra, initial encounter for closed fracture (principal); S22.079A Unspecified fracture of T9-T10 vertebra, initial encounter for closed fracture; S22.42XA Multiple fractures of ribs, left side, initial encounter for closed fracture; S27.321A Contusion of lung, unilateral, initial encounter; M25.512 Pain in left shoulder; M79.652 Pain in left thigh; R53.81 Other malaise; Y99.1 Military activity; V94.0XXA Hitting object or bottom of body of water due to fall from watercraft, initial encounter; Y92.62 Dock or shipyard as the place of occurrence of the external cause
CPT/HCPCS: 96376 ×2; 96374; 96375; 99285; 36415; 94762; 97116; 97162; 97535; 97166; 86900; 86901; 80053; 84484; 85025; 85610; 85730; 86850; 81003; 72170; 73030; 73552; 73562; 71045; 72125; 70450; 71260; 74177; G0378 ×3; J3010; J1885 ×3; Q9967

== ENCOUNTER 2024-12-29 17:51 | Emergency (ER) | payer OTHER ==
[2024-12-29 18:08] VITALS: RESP 18; TEMP 98.1
[2024-12-29 20:40] LABS: Basophils # (A) 0.04 10*3/uL (0.00-0.10); Basophils % (A) 0.3 %; Eosinophils # (A) 0.08 10*3/uL (0.04-0.35); Eosinophils % (A) 0.7 %; HCT 49.2 % (39.6-50.0); HGB 16.7 g/dL (13.0-17.0); Lymphocytes # (A) 1.76 10*3/uL (0.90-5.00); Lymphocytes % (A) 14.8 %; MCH 26.5 pg (27.0-32.0); MCHC 33.9 g/dL (32.0-37.0); MCV 78.1 fL (80.0-97.0); Mean Platelet Volume 10.3 fL (9.5-12.2); Monocytes # (A) 0.63 10*3/uL (0.20-1.00); Monocytes % (A) 5.3 %; Neutrophils # (A) 9.33 10*3/uL (1.80-7.70); Neutrophils % (A) 78.7 %; Platelet Count 383 10*3/uL (140-440); RDW 12.4 % (11.5-14.5); WBC 11.86 10*3/uL (4.50-10.00)
[2024-12-29] MEDS: SODIUM CHLORIDE 0.9% 500 ML 500 ML IV STA (20:42)
--- NOTE | 2024-12-29 20:47 | XR ---
EXAMINATION TYPE: XR chest 2V DATE OF EXAM: 12/29/2024 8:33 PM COMPARISON: Chest radiographs from 03/18/2019. CLINICAL INDICATION: Male, 24 years old with history of syncope; [facility] TECHNIQUE: XR chest 2V Frontal and lateral views of the chest. FINDINGS: Lungs/Pleura: There is no evidence of pleural effusion, focal consolidation, or pneumothorax. Pulmonary vascularity: Unremarkable. Heart/mediastinum: Cardiomediastinal silhouette is unremarkable. Musculoskeletal: No acute osseous pathology. IMPRESSION: No acute cardiopulmonary disease/process. [facility], , 12/29/2024 8:45 PM
[2024-12-29 20:54] LABS: ALT 37 U/L (4-49); AST 32 U/L (17-59); African American GFR (CKD) >90 (>60 ml/min/1.73 sqM); Albumin 3.8 g/dL (3.5-5.0); Alkaline Phosphatase 44 U/L (38-126); Anion Gap 8 mmol/L; Blood Urea Nitrogen 9 mg/dL (9-20); Calcium 9.4 mg/dL (8.4-10.2); Carbon Dioxide 25 mmol/L (22-30); Chloride 103 mmol/L (98-107); Glucose 87 mg/dL (74-99); Non-African American GFR(CKD) >90 (>60 ml/min/1.73 sqM); Potassium 4.4 mmol/L (3.5-5.1); Sodium 136 mmol/L (137-145); Total Bilirubin 0.4 mg/dL (0.2-1.3)
[2024-12-29 20:58] LABS: INR 0.9 (<1.2); Prothrombin Time 10.2 sec (10.0-12.5)
--- NOTE | 2024-12-29 20:58 | ED ---
General Adult HPI - General Chief complaint: Syncope Stated complaint: fall, syncope Time Seen by Provider: 12/29/24 19:26 Source: patient, family Mode of arrival: ambulatory Limitations: no limitations - History of Present Illness Initial comments: 24-year-old male presenting for evaluation after syncopal episode. Patient reports that earlier today he donated plasma. Later on in the day he lifted a heavy box and carried it into the house. Shortly thereafter he started to feel a bit dizzy and ended up passing out. He hit the back of his head on the wall. His friend at bedside states that he was unconscious for about 5 seconds. When he woke up he shortly thereafter was alert and oriented x 3 and back to his baseline. He has had no vomiting. He does have a mild headache. He does have a small laceration at the back of the scalp. No neck pain. No numbness tingling or weakness. No chest pain or difficulty breathing. No abdominal pain. No extremity pain. - Related Data Previous Rx's Medication Instructions Recorded Cyclobenzaprine [Flexeril] 10 mg PO TID #30 tab 03/20/19 Ibuprofen [Motrin] 600 mg PO Q8HR PRN #30 tab 03/20/19 Allergies Allergy/AdvReac Type Severity Reaction Status Date / Time No Known Allergies Allergy Verified 12/29/24 18:08 Review of Systems ROS Statement: Those systems with pertinent positive or pertinent negative responses have been documented in the HPI. ROS Other: All systems not noted in ROS Statement are negative. Past Medical History Past Medical History: No Reported History History of Any Multi-Drug Resistant Organisms: None Reported Past Surgical History: No Surgical Hx Reported Past Anesthesia/Blood Transfusion Reactions: No Reported Reaction Past Psychological History: No Psychological Hx Reported Smoking Status: Never smoker Past Alcohol Use History: Occasional Past Drug Use History: None Reported General Exam Limitations: no limitations General appearance: alert, in no apparent distress Expanded Head exam: Present: laceration (Small laceration of the posterior scalp) Eye exam: Present: normal appearance, PERRL, EOMI. Absent: periorbital swelling Neck exam: Present: normal inspection. Absent: tenderness, meningismus Respiratory exam: Present: normal lung sounds bilaterally. Absent: respiratory distress, wheezes, rales, rhonchi, stridor Cardiovascular Exam: Present: regular rate, normal rhythm, normal heart sounds. Absent: systolic murmur, diastolic murmur, rubs, gallop, clicks Extremities exam: Present: normal inspection, full ROM Neurological exam: Present: alert, oriented X3 Expanded Eye Response: (4) open spontaneously Motor Response: (6) obeys commands Verbal Response: (5) oriented Darnell Total: 15 Psychiatric exam: Present: normal affect, normal mood Course Vital Signs 12/29/24 12/29/24 18:01 22:06 Temperature 98.1 F Pulse Rate 98 94 Respiratory 18 18 Rate Blood Pressure 138/92 137/83 O2 Sat by Pulse 97 98 Oximetry Medical Decision Making - Medical Decision Making Was pt. sent in by a medical professional or institution (, PA, FIRE PATROLLER, urgent care, hospital, or penitentiary...) When possible be specific @ -No Did you speak to anyone other than the patient for history (EMS, parent, family, police, friend...)? What history was obtained from this source @ -No Did you review nursing and triage notes (agree or disagree)? Why? @ -I reviewed and agree with nursing and triage notes Were old charts reviewed (outside hosp., previous admission, EMS record, old EKG, old radiological studies, urgent care reports/EKG's, penitentiary records)? Report findings @ -No old charts were reviewed Differential Diagnosis (chest pain, altered mental status, abdominal pain women, abdominal pain men, vaginal bleeding, weakness, fever, dyspnea, syncope, headache, dizziness, GI bleed, back pain, seizure, CVA, palpatations, mental health, musculoskeletal)? @ -MDM Differential Syncope: Valvular disease, hypertrophic cardiomyopathy, pulmonary embolism, tamponade, tachycardia, bradycardia, NJ, hypovolemia, hemorrhage, dissection, anemia, intracranial hemorrhage, seizure, hypoglycemia, carbon monoxide poisoning… this is not meant to be an all-inclusive list. EKG interpreted by me (3pts min.). @ -EKG shows sinus rhythm with sinus arrhythmia ventricular rate 77. UT interval 148. QRS 96. QT 325. QTc 357 X-rays interpreted by me (1pt min.). @ -Chest x-ray shows mild pulmonary edema with no acute cardiopulmonary process CT interpreted by me (1pt min.). @ -None done U/S interpreted by me (1pt. min.). @ -None done What testing was considered but not performed or refused? (CT, X-rays, U/S, labs)? Why? @ -None What meds were considered but not given or refused? Why? @ -None Did you discuss the management of the patient with other professionals (professionals i.e. , PA, FIRE PATROLLER, lab, RT, psych nurse, social service agency director, metallurgical lab technician, teacher, operational intelligence officer, case maker)? Give summary @ -No Was smoking cessation discussed for >3mins.? @ -No Was critical care preformed (if so, how long)? @ -No Were there social determinants of health that impacted care today? How? (Home lessness, low income, unemployed, alcoholism, drug addiction, transportation, low edu. Level, literacy, decrease access to med. care, usp, rehab)? @ -No Was there de-escalation of care discussed even if they declined (Discuss DNR or withdrawal of care, Hospice)? DNR status @ -No What co-morbidities impacted this encounter? (DM, HTN, Smoking, COPD, CAD, Cancer, CVA, ARF, Chemo, Hep., AIDS, mental health diagnosis, sleep apnea, morbid obesity)? @ -None Was patient admitted / discharged? Hospital course, mention meds given and route, prescriptions, significant lab abnormalities, going to OR and other pertinent info. @ -24-year-old male presenting for evaluation after syncopal episode. This happened after carrying a heavy box into the house, patient also reports that earlier today he donated plasma. He feels fine at this time. History and physical examination are conducted. GCS 15 with no deficits. He does have a small 1 cm laceration to the posterior scalp which is repaired using a staple. EKG shows sinus rhythm with sinus arrhythmia. Chest x-ray shows no acute cardiopulmonary process. negative troponin. Remainder of lab work requires no immediate action. On reassessment the patient is resting comfortably showing no acute signs of distress. Syncope was likely due to donating plasma earlier today and then undergoing some exertion. Patient educated on today's findings and treatment plan. Follow-up with PCP. Report back to ER with any new or worsening symptoms. Discussed return parameters and answered all questions. Patient conveyed verbal understanding and agreed to the plan. I discussed this case in detail with my attending Dr. Cutler Undiagnosed new problem with uncertain prognosis? @ -No Drug Therapy requiring intensive monitoring for toxicity (Heparin, Nitro, Insulin, Cardizem)? @ -No Were any procedures done? @ -No Diagnosis/symptom? @ -Syncope Acute, or Chronic, or Acute on Chronic? @ -Acute Uncomplicated (without systemic symptoms) or Complicated (systemic symptoms)? @ -Uncomplicated Side effects of treatment? @ -No Exacerbation, Progression, or Severe Exacerbation? @ -No Poses a threat to life or bodily function? How? (Chest pain, USA, NJ, pneumonia, PE, COPD, DKA, ARF, appy, cholecystitis, CVA, Diverticulitis, Homicidal, Suicidal, threat to staff... and all critical care pts) @ -Low likelihood - Lab Data Result diagrams: 12/29/24 20:27 12/29/24 20:27 Lab Results 12/29/24 12/29/24 12/29/24 Range/Units 20:27 20:27 20:27 WBC 11.86 H (4.50-10.00) 10*3/uL RBC 6.30 H (4.40-5.60) 10*6/uL Hgb 16.7 (13.0-17.0) g/dL Hct 49.2 (39.6-50.0) % MCV 78.1 L (80.0-97.0) fL MCH 26.5 L (27.0-32.0) pg MCHC 33.9 (32.0-37.0) g/dL Plt Count 383 (140-440) 10*3/uL MPV 10.3 (9.5-12.2) fL Immature Gran % (Auto) 0.2 % Neutrophils % 78.7 % Lymphocytes % 14.8 % Monocytes % 5.3 % Eosinophils % 0.7 % Basophils % 0.3 % Immature Gran # 0.02 (0.00-0.04) 10*3/uL Neutrophils # 9.33 H (1.80-7.70) 10*3/uL Lymphocytes # 1.76 (0.90-5.00) 10*3/uL Monocytes # 0.63 (0.20-1.00) 10*3/uL Eosinophils # 0.08 (0.04-0.35) 10*3/uL Basophils # 0.04 (0.00-0.10) 10*3/uL PT 10.2 (10.0-12.5) sec INR 0.9 (<1.2) APTT 21.8 L (22.0-30.0) sec Sodium 136 L (137-145) mmol/L Potassium 4.4 (3.5-5.1) mmol/L Chloride 103 (98-107) mmol/L Carbon Dioxide 25 (22-30) mmol/L Anion Gap 8 mmol/L BUN 9 (9-20) mg/dL Creatinine 0.95 (0.66-1.25) mg/dL Est GFR (CKD-EPI)AfAm >90 (>60 ml/min/1.73 sqM) Est GFR (CKD-EPI)NonAf >90 (>60 ml/min/1.73 sqM) Glucose 87 (74-99) mg/dL Calcium 9.4 (8.4-10.2) mg/dL Total Bilirubin 0.4 (0.2-1.3) mg/dL AST 32 (17-59) U/L ALT 37 (4-49) U/L Alkaline Phosphatase 44 (38-126) U/L Troponin I (0.000-0.034) ng/mL Total Protein 6.0 L (6.3-8.2) g/dL Albumin 3.8 (3.5-5.0) g/dL 12/29/24 Range/Units 20:27 WBC (4.50-10.00) 10*3/uL RBC (4.40-5.60) 10*6/uL Hgb (13.0-17.0) g/dL Hct (39.6-50.0) % MCV (80.0-97.0) fL MCH (27.0-32.0) pg MCHC (32.0-37.0) g/dL Plt Count (140-440) 10*3/uL MPV (9.5-12.2) fL Immature Gran % (Auto) % Neutrophils % % Lymphocytes % % Monocytes % % Eosinophils % % Basophils % % Immature Gran # (0.00-0.04) 10*3/uL Neutrophils # (1.80-7.70) 10*3/uL Lymphocytes # (0.90-5.00) 10*3/uL Monocytes # (0.20-1.00) 10*3/uL Eosinophils # (0.04-0.35) 10*3/uL Basophils # (0.00-0.10) 10*3/uL PT (10.0-12.5) sec INR (<1.2) APTT (22.0-30.0) sec Sodium (137-145) mmol/L Potassium (3.5-5.1) mmol/L Chloride (98-107) mmol/L Carbon Dioxide (22-30) mmol/L Anion Gap mmol/L BUN (9-20) mg/dL Creatinine (0.66-1.25) mg/dL Est GFR (CKD-EPI)AfAm (>60 ml/min/1.73 sqM) Est GFR (CKD-EPI)NonAf (>60 ml/min/1.73 sqM) Glucose (74-99) mg/dL Calcium (8.4-10.2) mg/dL Total Bilirubin (0.2-1.3) mg/dL AST (17-59) U/L ALT (4-49) U/L Alkaline Phosphatase (38-126) U/L Troponin I <0.012 (0.000-0.034) ng/mL Total Protein (6.3-8.2) g/dL Albumin (3.5-5.0) g/dL Disposition Clinical Impression: Syncope Disposition: HOME SELF-CARE Condition: Good Instructions (If sedation given, give patient instructions): Syncope (ED) Additional Instructions: Follow-up with PCP. Report back to ER with any new or worsening symptoms Is patient prescribed a controlled substance at d/c from ED?: No Referrals: None,Stated [Primary Care Provider] - 1-2 days Forms: Area PCPs Time of Disposition: 21:58
[2024-12-29 21:00] LABS: Partial Thromboplastin Time 21.8 sec (22.0-30.0)
[2024-12-29 22:08] VITALS: BP 137/83; PULSE 94
== END 2024-12-29 22:07 | disposition home or self-care (01) ==
LOC: EC 17:51
DX: R55 Syncope and collapse (principal)
CPT/HCPCS: 36415; 71046; 80053; 84484; 85025; 85610; 85730; 93005; 96360; 99284